=== PATIENT | female | born 1970 | race Caucasian/White ===

== ENCOUNTER 2018-05-22 16:51 | Emergency (ER) | payer OTHER ==
[~2018-05-22] VITALS: Ht 165.1 cm; Wt 54.4 kg
[2018-05-22] MEDS ORDERED: VENTOLIN HFA18 GM (16:56)
[2018-05-22] MEDS ORDERED: SINGULAIR10 MG (16:56)
[2018-05-22] MEDS ORDERED: SYNTHROID75 MCG (16:57)
== END 2018-05-22 18:00 | disposition home or self-care (01) ==
LOC: ER 16:51
DX: R06.02 Shortness of breath (principal); F06.4 Anxiety disorder due to known physiological condition